=== PATIENT | female | born 1945 | race Caucasian/White ===

== ENCOUNTER 2017-12-14 14:58 | Emergency (ER) | payer MEDICARE ==
[2017-12-14 15:18] VITALS: BP 128/87
--- NOTE | 2017-12-14 15:35 | UC ---
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 Patient was with daughter and she had a witnessed brief LOC-- patient has sometenderness a top of her head no neck or back pain - History Of Current Complaint Chief Complaint: UCHeadInjury Stated Complaint: HEAD INJURY Time Seen by Provider: 12/14/17 15:03 Hx Obtained From: Patient ?: No Mechanism Of Injury: hit on head with a crutch that fell about 6 foot above her head Onset/Duration: Sudden Onset Severity Currently: Moderate Severity Initially: Moderate Pain Intensity: 6 Pain Scale Used: 0-10 Numeric Character: Other - acheing Aggravating Factor(s): Nothing Alleviating Factor(s): Nothing Associated Signs And Symptoms: Positive: LOC (Time In Secs./Mins/Hrs) - brief. Negative: Confusion, Memory Loss, Neck Pain, Nausea - Allergies/Home Medications Allergies/Adverse Reactions: Allergies Allergy/AdvReac Type Severity Reaction Status Date / Time aspirin Allergy Swelling Verified 12/14/17 15:05 Home Medications: Home Medications Acetaminophen [Acetaminophen Extra Strength] 1,000 mg PO ONCE PRN 12/14/17 [ History Confirmed 12/14/17] Albuterol 2.5MG/3ML (0.083%)* [Ventolin 2.5 MG/3 ML NEB.XIN*] 2.5 mg INH Q6H PRN 12/14/17 [History Confirmed 12/14/17] Carbidopa-Levodopa Er 1 tab PO DAILY 12/14/17 [History Confirmed 12/14/17] Carbidopa/Levodop 25/100 MG(*) [Sinemet 25/100 TAB(*)] 1 tab PO BEDTIME [History Confirmed 12/14/17] Escitalopram Oxalate [Lexapro 20 mg] 20 mg PO BEDTIME 12/14/17 [History Confirmed 12/14/17] Lovastatin [Altoprev] 40 mg PO BEDTIME 12/14/17 [History Confirmed 12/14/17] Nortriptyline HCl [Pamelor] 50 mg PO BEDTIME 12/14/17 [History Confirmed ] Pramipexole TAB* [Mirapex TAB*] 0.5 mg PO BEDTIME 12/14/17 [History Confirmed ] Tiotropium Br/Olodaterol HCl [Stiolto Respimat 2.5-2.5 Mcg/Act] 1 aer IN DAILY 12/14/17 [History Confirmed 12/14/17] PMH/Surg Hx/FS Hx/Imm Hx Previously Healthy: No Neurological History: Other Other Neurological History: Parkinsons Disease Psychological History: Depression - Surgical History Surgical History: Yes Surgery Procedure, Year, and Place: COLON RESECT. LUMPECTOMY. RIGHT FOOT SX. T&A. TUBAL LIGATION - Family History Known Family History: Positive: None - Social History Occupation: Retired Lives: Assisted Living - "[facility]" Alcohol Use: Rare Substance Use Type: None Smoking Status (MU): Former Smoker When Did the Patient Quit Smoking/Using Tobacco: 1995 Review of Systems Constitutional: Negative Skin: Negative Eyes: Negative ENT: Negative Respiratory: Negative Cardiovascular: Negative Gastrointestinal: Negative Genitourinary: Negative Motor: Negative Neurovascular: Negative Musculoskeletal: Negative Neurological: Headache - top of head were crutch hit her Psychological: Negative Is Patient Immunocompromised?: No All Other Systems Reviewed And Are Negative: Yes Physical Exam Triage Information Reviewed: Yes Appearance: Well-Appearing, No Pain Distress, Well-Nourished Vital Signs: Initial Vital Signs Temp 97.3 F 12/14/17 15:08 Pulse 79 12/14/17 15:08 Resp 22 12/14/17 15:08 BP 128/87 12/14/17 15:08 Pulse Ox 98 12/14/17 15:08 Vital Signs Reviewed: Yes Eye Exam: Normal Eyes: Positive: Conjunctiva Clear, Other: - perrla, eomi ENT Exam: Normal ENT: Positive: Normal ENT inspection, Hearing grossly normal, Pharynx normal, TMs normal, Uvula midline. Negative: Nasal congestion, Tonsillar swelling, Tonsillar exudate, Trismus, Hoarse voice, Dental tenderness, Sinus tenderness Dental Exam: Normal Neck exam: Normal Neck: Positive: Supple, Nontender, No Lymphadenopathy Respiratory Exam: Normal Respiratory: Positive: Chest non-tender, Lungs clear, Normal breath sounds, No respiratory distress, No accessory muscle use Cardiovascular Exam: Normal Cardiovascular: Positive: RRR, No Murmur, Pulses Normal, Brisk Capillary Refill Musculoskeletal Exam: Normal Musculoskeletal: Positive: Strength Intact, ROM Intact, No Edema Neurological Exam: Normal Neurological: Positive: Alert, Muscle Tone Normal Psychological Exam: Normal Psychological: Positive: Normal Response To Family Skin Exam: Normal Head Injury Course/Dx - Course Course Of Treatment: patient refuses to go to any hospital for a CT scan, 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 plan to follow with PCP MONA or go to emergency department at any time for complete assessment - Differential Dx/Diagnosis Provider Diagnoses: Head injury Discharge - Discharge Plan Condition: Guarded Disposition: AGAINST MEDICAL ADVICE Patient Education Materials: Head Injury (ED) Referrals: Cliff Brice MD [Primary Care Provider] - 1 Day
== END 2017-12-14 15:44 | disposition left against medical advice (07) ==
LOC: UCCORT 14:58
DX: S06.9X1A Unspecified intracranial injury with loss of consciousness of 30 minutes or less, initial encounter (principal); W20.8XXA Other cause of strike by thrown, projected or falling object, initial encounter; Y93.9 Activity, unspecified; Y92.9 Unspecified place or not applicable; G20 Parkinson's disease; F32.9 Major depressive disorder, single episode, unspecified; Z87.891 Personal history of nicotine dependence
CPT/HCPCS: 99212; G0463

== ENCOUNTER 2019-07-19 13:59 | Emergency (ER) | payer MEDICARE ==
[2019-07-19 14:13] VITALS: BP 137/84
--- NOTE | 2019-07-19 14:32 | UC ---
Abdominal Pain Female HPI - HPI Summary HPI Summary: 73 yo female with a 2 week hx of pain from R and left costal margins down to both knees no fever/chills no n/v/d some constipation no UTI symptoms no wt loss Hx Parkinson Dz Her neurologist told her to see her PCP but she couldn't get in until next week Legs feel heavy trouble ambulating using a cane Pain 7/10 and worse with ambulating trouble lifting legs Hx colon CA - History of Current Complaint Chief Complaint: UCGeneralIllness Stated Complaint: PAIN IN LEGS Time Seen by Provider: 07/19/19 14:31 Hx Obtained From: Patient Onset/Duration: Gradual Onset, Lasting Weeks Timing: Constant Severity Initially: Mild Severity Currently: Moderate Pain Intensity: 7 Pain Scale Used: 0-10 Numeric Location: Diffuse Radiates to: Other - legs Allergies/Adverse Reactions: Allergies Allergy/AdvReac Type Severity Reaction Status Date / Time aspirin Allergy Swelling Verified 07/19/19 14:06 Home Medications: Home Medications Donepezil TAB* [Aricept 5 MG TAB*] 5 mg PO DAILY 07/19/19 [History Confirmed ] Melatonin 5 mg PO BEDTIME 07/19/19 [History Confirmed 07/19/19] PMH/Surg Hx/FS Hx/Imm Hx Previously Healthy: Yes Neurological History: Other Other Neurological History: Parkinson's Cancer History: Colorectal Cancer - Surgical History Surgical History: Yes Surgery Procedure, Year, and Place: COLON RESECT. LUMPECTOMY. RIGHT FOOT SX. T&A. TUBAL LIGATION - Family History Known Family History: Positive: Non-Contributory - Social History Alcohol Use: None Substance Use Type: None Smoking Status (MU): Former Smoker When Did the Patient Quit Smoking/Using Tobacco: 1995 Review of Systems All Other Systems Reviewed And Are Negative: Yes Constitutional: Positive: Negative Skin: Positive: Negative Eyes: Positive: Negative ENT: Positive: Negative Respiratory: Positive: Negative Cardiovascular: Positive: Negative Gastrointestinal: Positive: Abdominal Pain Genitourinary: Positive: Negative Motor: Positive: Weakness - LE Musculoskeletal: Positive: Arthralgia - hips/knees Neurological: Positive: Negative Psychological: Positive: Negative Physical Exam Triage Information Reviewed: Yes Appearance: Well-Appearing, No Pain Distress, Well-Nourished Vital Signs: Initial Vital Signs Temp 99.0 F 07/19/19 14:06 Pulse 88 10/20/19 14:06 Resp 18 07/19/19 14:06 BP 137/84 07/19/19 14:06 Pulse Ox 94 07/19/19 14:06 Vital Signs Reviewed: Yes Eyes: Positive: Conjunctiva Clear ENT: Positive: Hearing grossly normal. Negative: Nasal congestion, Nasal drainage, Trismus, Muffled voice, Hoarse voice Neck: Positive: Supple, Nontender, No Lymphadenopathy Respiratory: Positive: Lungs clear, Normal breath sounds, No respiratory distress, No accessory muscle use Cardiovascular: Positive: RRR Abdomen Description: Negative: Nontender - RLQ>LLQ Musculoskeletal: Positive: ROM Limited @ - R>L lip Neurological: Positive: Alert, Other: - Brisk knee and ankle jerks Psychological Exam: Normal Skin Exam: Normal Abd Pain Female Course/Dx - Course Course Of Treatment: I discussed the need for a higher level of care with patient SHE REFUSED TRANSF[facility] She desires to go to [place] I spoke to "Naida" They are expecting her Daughter will drive - Differential Dx/Diagnosis Provider Diagnosis: Abdominal pain, Leg pain, Leg weakness, bilateral Discharge ED - Sign-Out/Discharge Documenting (check all that apply): Patient Departure All imaging exams completed and their final reports reviewed: No Studies - Discharge Plan Condition: Guarded Disposition: TRANS HIGHER LVL OF CARE FAC Referrals: Cliff Brice MD [Primary Care Provider] - - Billing Disposition and Condition Condition: GUARDED Disposition: Trans Higher Lvl of Care Fac
== END 2019-07-19 15:15 | disposition short-term general hospital (02) ==
LOC: UCCORT 13:59
DX: M25.562 Pain in left knee (principal); M25.561 Pain in right knee; R53.1 Weakness; R10.9 Unspecified abdominal pain; G20 Parkinson's disease; Z87.891 Personal history of nicotine dependence; Z85.038 Personal history of other malignant neoplasm of large intestine; Z79.82 Long term (current) use of aspirin; Z79.899 Other long term (current) drug therapy
CPT/HCPCS: 81003; 99212; G0463

== ENCOUNTER 2020-11-11 06:18 | Observation (INO) ==
[~2020-11-11 06:18] MED LIST: Buffered Lidocaine 1% SYRIN 1 ml INTRADERM ONE; Lactated Ringers 1000 ml BAG 1,000 ML IV SCH
[2020-11-11] MEDS ORDERED: ceFAZolin 2 GM PREMIX 2 GM/50 ML BAG ONE (06:40)
[2020-11-11] MEDS ORDERED: Lidocaine 2% PF 5 ML VIAL ONE (07:02)
[2020-11-11] MEDS ORDERED: Propofol 10 MG/ML 20 ML BTL ONE (07:02)
[2020-11-11] MEDS ORDERED: Ketamine HCL 50 mg/ml 10 ml VIAL (500 MG) ONE (08:39)
[2020-11-11] MEDS ORDERED: Midazolam 2 mg/2 ml VIAL 1 mg/ml 2 ml VIAL (2 mg) ONE (08:39)
[2020-11-11] MEDS ORDERED: Ondansetron 4 mg VIAL 2 MG/ML 2 ml VIAL ONE (08:56)
[2020-11-11] MEDS ORDERED: fentaNYL 100 mcg/2 ml 50 MCG/ML VIAL ONE ×2 (09:03→13:26)
[2020-11-11] MEDS ORDERED: Phenylephrine 40 mcg/mL 10mL (400mcg) SYRINGE ONE (09:38)
[2020-11-11] MEDS ORDERED: EPHEDrine (Pressors) 50 MG/ML VIAL ONE ×2 (09:38→10:27)
[2020-11-11] MEDS ORDERED: oxyCODONE/Acetamin 5/325 mg TAB PO PRN ×2 (09:44→11:40)
[2020-11-11] MEDS ORDERED: fentaNYL 100 mcg/2 ml 50 MCG/ML VIAL IV PRN (09:44)
[2020-11-11] MEDS ORDERED: DiMENhydriNATE IV 50 mg/ml 1 ml VIAL IV PUSH PRN (09:44)
[2020-11-11] MEDS ORDERED: Naloxone 0.4 mg VIAL 0.4 mg/ml 1 ml VIAL IV PRN (09:44)
[2020-11-11] MEDS ORDERED: Ondansetron 4 mg VIAL 2 MG/ML 2 ml VIAL IV PRN (09:44)
[2020-11-11] MEDS ORDERED: Phenylephrine IV 10 MG/ML 1 ml VIAL ONE (09:58)
[2020-11-11] MEDS ORDERED: Glycopyrrolate IV 0.2 MG/ML 1 ML VIAL ONE (10:31)
[2020-11-11] MEDS ORDERED: Dexmedetomidine 200 mcg/2 ml 2 ml VIAL (200 mcg) ONE (10:31)
[2020-11-11] MEDS ORDERED: diPHENhydraMINE 25 mg TAB PO PRN (11:40)
[2020-11-11] MEDS ORDERED: Lactulose 30 ml UDC PO PRN (11:40)
[2020-11-11] MEDS ORDERED: diPHENhydraMINE IV 50 MG/ML 1 ml VIAL (BENADRYL) IV PRN (11:40)
[2020-11-11] MEDS ORDERED: Morphine 2 MG/ML SYRINGE IV PRN (11:40)
[2020-11-11] MEDS ORDERED: Magnesium Hydroxide LIQ 30 ML UDC PO PRN (11:40)
[2020-11-11] MEDS ORDERED: oxyCODONE/Acetamin 5/325 mg TAB ONE (13:25)
[2020-11-11] MEDS: Lactated Ringers 1000 ml BAG 1,000 ML IV SCH (14:17)
[2020-11-11] MEDS: Carbidopa/Levodop 25/100 MG TAB PO SCH ×3 (14:42→20:45)
[2020-11-11] MEDS: ENTACAPONE 200 MG PO SCH ×3 (14:50→20:43)
[2020-11-11] MEDS: ceFAZolin 1 GM ADVAN 1 GM in NS 0.9% 50 ML 50 ML IVPB SCH (17:45)
[2020-11-11] MEDS: Magnesium Hydroxide LIQ 30 ML UDC PO SCH (20:47)
[2020-11-11] MEDS ORDERED: Nortriptyline 25 mg TAB PO SCH (21:00)
[2020-11-12] MEDS: ceFAZolin 1 GM ADVAN 1 GM in NS 0.9% 50 ML 50 ML IVPB SCH ×2 (00:35→08:46)
[2020-11-12] MEDS: Lactated Ringers 1000 ml BAG 1,000 ML IV SCH (00:36)
[2020-11-12] MEDS: oxyCODONE/Acetamin 5/325 mg TAB PO PRN ×2 (04:09→08:41)
[2020-11-12 05:01] LABS: Hematocrit 36 % (35-47); Hemoglobin 11.9 g/dL (12.0-16.0); Mean Platelet Volume 7.7 fL (7.4-10.4); Platelet Count 308 10^3/uL (150-450)
[2020-11-12 05:17] LABS: BUN/Creatinine Ratio 15.9 (8-20); Calcium 8.5 mg/dL (8.6-10.3); EGFR African American 111.8 (>60); EGFR Non-African American 92.4 (>60); Potassium 3.8 mmol/L (3.5-5.0)
[2020-11-12] MEDS: Magnesium Hydroxide LIQ 30 ML UDC PO SCH (08:41)
[2020-11-12] MEDS: Carbidopa/Levodop 25/100 MG TAB PO SCH ×3 (08:42→16:46)
[2020-11-12] MEDS: ENTACAPONE 200 MG PO SCH ×3 (08:42→16:46)
[2020-11-12] MEDS ORDERED: Tiotropium Brom/Olodaterol MDI INH SCH (09:00)
[2020-11-12] MEDS ORDERED: Vitamin THERAPEUTIC TAB PO SCH (09:00)
[2020-11-12] MEDS ORDERED: Iohexol 350 (CONTRAST) 500 ML MDV IV ONE (10:22)
[2020-11-12 16:55] VITALS: BP 150/53
== END 2020-11-12 17:00 | disposition home or self-care (01) | DRG 470 ==
LOC: AA 06:18 → INTOOBSV 06:18 → SSU 14:05
PROVIDERS: ADMIT Orthopaedic Surgery Adult Reconstructive Orthopaedic Surgery; ATTEND Orthopaedic Surgery Adult Reconstructive Orthopaedic Surgery

== ENCOUNTER 2022-05-11 07:39 | Observation (INO) ==
[2022-05-11] MEDS ORDERED: ceFAZolin 2 GM in NS PREMIX 2 GM/100 ML BAG IVPB ONE (08:24)
[2022-05-11 08:33] LABS: Rapid COVID-19 Molecular Undetected (Undetected)
[2022-05-11 08:35] LABS: ABS Basophils 0.1 10^3/ul (0-0.2); ABS Eosinophils 0.1 10^3/ul (0-0.6); ABS Lymphocytes 1.6 10^3/ul (1.0-4.8); ABS Monocytes 0.5 10^3/ul (0-0.8); ABS Neutrophils 3.3 10^3/ul (1.5-7.7); Eosinophil % 2.6 %; Hematocrit 43 % (35-47); Hemoglobin 14.7 g/dL (12.0-16.0); Lymphocyte % 28.6 %; Mean Corpuscular HGB Conc 35 g/dL (31-36); Mean Corpuscular Hemoglobin 31 pg (27-31); Mean Corpuscular Volume 89 fL (80-97); Mean Platelet Volume 7.5 fL (7.4-10.4); Platelet Count 294 10^3/uL (150-450); Red Blood Count 4.76 10^6 /uL (3.70-4.87); Red Cell Distribution Width 14 % (10-15); White Blood Count 5.6 10^3/uL (3.5-10.8)
[2022-05-11 08:55] LABS: INR 1.03 (0.89-1.11)
[2022-05-11 09:15] LABS: Calcium 9.3 mg/dL (8.6-10.3); Potassium 3.9 mmol/L (3.5-5.0); eGFR CKD-EPI 91.1 (>60)
[2022-05-11] MEDS ORDERED: Midazolam 2 mg/2 ml VIAL 1 mg/ml 2 ml VIAL (2 mg) ONE (09:28)
[2022-05-11] MEDS ORDERED: HYDROmorphone 1 MG/1 ML SYRINGE IV PRN (09:36)
[2022-05-11] MEDS ORDERED: Naloxone 0.4 mg VIAL 0.4 mg/ml 1 ml VIAL IV PRN (09:36)
[2022-05-11] MEDS ORDERED: ROPIVACAINE 5 MG/ML 30 ML BTL (0.5%) ONE (09:44)
[2022-05-11] MEDS ORDERED: Phenylephrine 40 mcg/mL 10mL (400mcg) SYRINGE ONE (10:26)
[2022-05-11] MEDS ORDERED: Phenylephrine IV 10 MG/ML 1 ml VIAL ONE (10:54)
[2022-05-11] MEDS ORDERED: Lactulose 30 ml UDC PO PRN (11:38)
[2022-05-11] MEDS ORDERED: Ondansetron ODT 4 mg TAB 4 MG TAB PO PRN (11:38)
[2022-05-11] MEDS ORDERED: Magnesium Hydroxide LIQ 30 ML UDC PO PRN (11:38)
[2022-05-11] MEDS ORDERED: Ondansetron 4 mg VIAL 2 MG/ML 2 ml VIAL IV PRN (11:38)
[2022-05-11] MEDS ORDERED: Morphine 2 MG/ML SYRINGE IV PRN (11:38)
[2022-05-11] MEDS ORDERED: Prochlorperazine 5 mg/ml 2 ml VIAL (10 mg) IV PRN (11:46)
[2022-05-11] MEDS ORDERED: ceFAZolin 1 GM ADVAN 1 GM in NS 0.9% 50 ML 50 ML IVPB SCH (12:00)
[2022-05-11] MEDS ORDERED: HYDROmorphone 1 MG/1 ML SYRINGE ONE (12:44)
[2022-05-11] MEDS: Lactated Ringers 1000 ml BAG 1,000 ML IV SCH (14:14)
[2022-05-11] MEDS: Carbidopa/Levodop 25/100 MG TAB PO SCH ×3 (15:04→20:11)
[2022-05-11] MEDS: ceFAZolin 1 GM in Dextrose 1 GM/50 ML BAG IVPB SCH (16:19)
[2022-05-11] MEDS: CMCS: Entacapone 200 mg TAB (NF) PO SCH ×2 (16:22→20:10)
[2022-05-11] MEDS: Magnesium Hydroxide LIQ 30 ML UDC PO SCH (20:12)
[2022-05-11] MEDS ORDERED: LOVASTATIN 40 MG PO SCH (21:00)
[2022-05-12] MEDS: Lactated Ringers 1000 ml BAG 1,000 ML IV SCH ×2 (00:26→00:31)
[2022-05-12] MEDS: ceFAZolin 1 GM in Dextrose 1 GM/50 ML BAG IVPB SCH ×2 (01:11→08:16)
[2022-05-12 06:24] LABS: Hematocrit 37 % (35-47); Mean Platelet Volume 7.3 fL (7.4-10.4); Platelet Count 211 10^3/uL (150-450)
[2022-05-12 06:55] LABS: Calcium 8.4 mg/dL (8.6-10.3); eGFR CKD-EPI 93.2 (>60)
[2022-05-12 07:53] VITALS: BP 114/68
[2022-05-12] MEDS: Magnesium Hydroxide LIQ 30 ML UDC PO SCH (08:07)
[2022-05-12] MEDS: CMCS: Entacapone 200 mg TAB (NF) PO SCH (08:08)
[2022-05-12] MEDS: Carbidopa/Levodop 25/100 MG TAB PO SCH (08:09)
[2022-05-12] MEDS ORDERED: Tiotropium Brom/Olodaterol MDI INH SCH (09:00)
[2022-05-12] MEDS ORDERED: Vitamin THERAPEUTIC TAB PO SCH (09:00)
== END 2022-05-12 13:44 | disposition home or self-care (01) ==
LOC: SSU 07:39 → OR 07:39 → EDSTATUS 09:15
PROVIDERS: ADMIT Orthopaedic Surgery Adult Reconstructive Orthopaedic Surgery; ATTEND Orthopaedic Surgery Adult Reconstructive Orthopaedic Surgery